=== PATIENT | male | born 1985 | race Caucasian/White ===

== ENCOUNTER → 2018-07-26 | Outpatient (CLI) | payer OTHER | LOC: RAD 15:25 | DX: R94.5 Abnormal results of liver function studies (principal) ==

== ENCOUNTER 2021-09-30 19:54 | Emergency (ER) | payer OTHER ==
[~2021-09-30] VITALS: Ht 182.9 cm; Wt 88.2 kg
[2021-09-30 21:05] VITALS: BP 128/80
== END 2021-09-30 21:06 | disposition home or self-care (01) ==
LOC: ED 19:54
DX: S81.812A Laceration without foreign body, left lower leg, initial encounter (principal); F17.200 Nicotine dependence, unspecified, uncomplicated; Z28.310 Unvaccinated for COVID-19; Z23 Encounter for immunization; W26.8XXA Contact with other sharp object(s), not elsewhere classified, initial encounter
CPT/HCPCS: 90715